=== PATIENT | male | born 1990 | race Caucasian/White ===

== ENCOUNTER 2016-09-14 15:25 | Emergency (ER) | payer OTHER ==
[~2016-09-14] VITALS: Ht 177.8 cm; Wt 100.0 kg
[2016-09-14] MEDS ORDERED: KETOROLAC TROMETHAMINE 60 MG/2 ML VIAL IM ONE (16:15)
[2016-09-14 17:56] VITALS: BP 134/81
== END 2016-09-14 17:59 | disposition home or self-care (01) ==
LOC: EMS 15:27
DX: M54.32 Sciatica, left side (principal); F12.90 Cannabis use, unspecified, uncomplicated
CPT/HCPCS: 96372; 99283; J1885